=== PATIENT | male | born 1990 | race Caucasian/White ===

== ENCOUNTER 2017-09-05 13:54 | Emergency (ER) | payer MEDICAID ==
[2017-09-05 14:01] VITALS: RESP 16
--- NOTE | 2017-09-05 14:43 | EDPHY ---
H & P Time Seen by Provider: 09/05/17 14:05 HPI/ROS: CHIEF COMPLAINT: Left lateral ankle pain HISTORY OF PRESENT ILLNESS: 26-year-old male works at [employer] was at work, skiing, his ski tips wound to the snow and he fell forward acutely torquing his left ankle felt immediate pain to the lateral aspect of the ankle. Unable to ambulate or bear weight. Splinted by skiver machine operator transported via private vehicle. He is also complaining of fibular head pain. Denies head injury. Denies paresthesia. PHYSICAL EXAM (Prior to examination, patient consented to physical exam, hands were washed and my usual and customary physical exam procedures followed) 1) GENERAL: Well-developed, well-nourished, alert and oriented. Appears to be in no acute distress. 2) HEAD: Normocephalic 3) HEENT: Pupils equal, round, reactive to light bilaterally. 4) LUNGS: Breathing comfortably. 5) MUSCULOSKELETAL: Left lateral malleolus soft tissue swelling, tenderness. Intact skin. Tender to palpation fibular head. proximal tibia and fibula nontender .5th MT nontender negative Read test, compartments soft 6) SKIN: Intact no discoloration. 7) VASCULAR: DP,PT pulses and cap refill present and brisk DIFFERENTIAL DIAGNOSIS: in no particular order including but not limited to fracture, sprain, compartment syndrome Procedure: Crutches indications for crutch use discussed with patient. Patient fitted for crutches by ER staff. Observed ambulating with crutches. I think the patient has the capacity to safely use crutches. Usual and customary crutch walking precautions provided Procedure: Splint A Lele boot splint was applied by ER media technician. After application of the splint I returned and re-examined the patient. The splint was adequately immobilizing the joint and distal to the splint the patient's circulation and sensation were intact. Patient shows no signs of compartment syndrome. Was given orthopedic precautions. Smoking Status: Never smoked Constitutional: Initial Vital Signs Temperature (C) 36.9 C 09/05/17 13:59 Heart Rate 59 L 09/05/17 13:59 Respiratory Rate 16 09/05/17 13:59 Blood Pressure 114/64 09/05/17 13:59 O2 Sat (%) 97 09/05/17 13:59 O2 Delivery Mode Room Air Allergies/Adverse Reactions: No Known Allergies Allergy (Unverified 09/05/17 13:59) Home Medications: Medication Instructions Recorded Hydrocodone/APAP 5/325 [[place] 1 tab PO Q6 PRN #7 tab 09/05/17 5/325 (RX)] MDM/Departure - MDM Imaging Results: Imaging Impressions Ankle X-Ray 09/05/17 14:02 Impression: Distal fibular fracture. Knee X-Ray 09/05/17 14:26 Impression: Negative. Images reviewed by myself ED Course/Re-evaluation: Patient will necessitate follow up with worker's compensation provider and orthopedics. He has been placed in a [place] boot, reviewed his x-rays with him showing a distal fibular fracture. He is neurovascular intact no evidence of compartment syndrome. Given usual and customary orthopedic and compartment syndrome precautions instructions. He feels comfortable being discharged. Care of patient under supervision of secondary supervising physician Dr Gamboa - Depart Disposition: Home, Routine, Self-Care Clinical Impression: Downhill skiing Left fibular fracture Qualifiers: Encounter type: initial encounter Fibula location: distal Fracture type: closed Fracture morphology: other fracture Qualified Code(s): S82.832A - Other fracture of upper and lower end of left fibula, initial encounter for closed fracture Condition: Good Instructions: Ankle Fracture (ED) Additional Instructions: Return to the ER immediately if you experience discoloration, have worsening pain, numbness, tingling, or any other symptoms that concern you. If you received x-rays in the emergency department today, be advised, that ligamentous , tendon, muscular, and other non-bony injury cannot be fully ruled out. Try to keep your affected extremity elevated above the level of your chest, and keep cold packs on the affected area, for the next 48 hours. Further work ability and privileges to be determined by your work comp provider Stand Alone Forms: Work Comp Follow Up, Work Excuse Prescriptions: Hydrocodone/APAP 5/325 [[place] 5/325 (RX)] 1 tab PO Q6 PRN #7 tab PRN Reason: Pain, Severe Referrals: Mo Berman MD [Medical Doctor] - 1-2 days without fail
[2017-09-05 15:10] VITALS: BP 118/64; PULSE 60; TEMP 97.7; O2SAT 98
== END 2017-09-05 15:10 | disposition home or self-care (01) ==
DX: S82.832A Other fracture of upper and lower end of left fibula, initial encounter for closed fracture (principal); V00.321A Fall from snow-skis, initial encounter; Y99.8 Other external cause status; Y93.23 Activity, snow (alpine) (downhill) skiing, snowboarding, sledding, tobogganing and snow tubing
CPT/HCPCS: L4386